=== PATIENT | female | born 1960 | race Caucasian/White ===

== ENCOUNTER 2017-06-10 08:30 | Emergency (ER) | payer BC ==
[~2017-06-10] VITALS: Ht 165.1 cm; Wt 63.5 kg
[~2017-06-10 08:30] MED LIST: DESOGEN PO; LEXAPRO20 MG PO
--- OUTSIDE RECORDS SUMMARY | 2017-06-10 08:51 | XMS | Clinical Summary ---
Demographics + + + | Address | [address] | | | [place] [address] | + + + | Home Phone | | + + + | Preferred Language | Unknown | + + + | Marital Status | | + + + | Church Affiliation | Unknown | + + + | Race | Unknown | + + + | Ethnic Group | Unknown | + + + Author + + + | Author | [facility] | | | and [place] | + + + | Organization | [facility] | | | and [place] | + + + | Address | Unknown | + + + | Phone | Unavailable | + + + Support + + +---------+ + | Name | Relationship | Address | Phone | + + +---------+ + | Moshe Hartley | ECON | Unknown | | + + +---------+ + Care Team Providers + +------+ + | Care Bodily Injury Adjuster Name | Role | Phone | + +------+ + | No, Physician | PP | Unavailable | + +------+ + Allergies + + + + + + | Active Allergy | Reactions | Severity | Noted | Comments | | | | | Date | | + + + + + + | Penicillins | | | 11/23/19 | | | | | | 16 | | + + + + + + Current Medications No known medications Active Problems No known active problems Social History + +-------+ +--------+------+ | Tobacco Use | Types | Packs/Day | Years | Date | | | | | Used | | + +-------+ +--------+------+ | Never Smoker | | | | | + +-------+ +--------+------+ + + + | Sex Assigned at | Date Recorded | | | | + + + | Not on file | | + + + Last Filed Vital Signs + + + + | Vital Sign | Reading | Time Taken | + + + + | Blood Pressure | - | - | + + + + | Pulse | - | - | + + + + | Temperature | 37.1 C (98.7 F) | 11/23/2015 1023 PDT | + + + + | Respiratory Rate | - | - | + + + + | Oxygen Saturation | - | - | + + + + | Inhaled Oxygen | - | - | | Concentration | | | + + + + | Weight | 61.7 kg (136 lb) | 11/23/20153 PDT | + + + + | Height | 163.8 cm (5' 4.5") | 11/23/2015 1023 PDT | + + + + | Body Mass Index | 22.98 | 11/23/2015 1023 PDT | + + + + Plan of Treatment + + + + + | Health Maintenance | Due Date | Last Done | Comments | + + + + + | Hepatitis C | | | | | Screening | 2 | | | + + + + + | Vaccine: | | | | | Dtap/Tdap/Td (1 - | 1 | | | | Tdap) | | | | + + + + + | CERVICAL CANCER | | | | | SCREENING (PAP EVERY | 3 | | | | 3 YEARS 21-64 ) | | | | + + + + + | BREAST CANCER | | | | | SCREENING (MAMM Q2 | 2 | | | | YEARS 50-74) | | | | + + + + + | COLON CANCER | | | | | SCREENING | 2 | | | | (COLONOSCOPY EVERY | | | | | 10 YEARS 50-75) | | | | + + + + + | Vaccine: Influenza | | | | | (Season Ended) | 8 | | | + + + + + Results Not on filefrom Last 3 Months Insurance +-------+--------+ +------+-------+---------+ | Payer | Benefi | Subscriber | Type | Phone | Address | | | t Plan | ID | | | | | | / | | | | | | | Group | | | | | +-------+--------+ +------+-------+---------+ | BCBS | BCBS | xxxxxxxxxxx | PPO | | | | | PPO | x | | | | | | OTHER | | | | | +-------+--------+ +------+-------+---------+ + +--------+ +--------+ + + | Guarantor Name | Accoun | Relation to | Date | Phone | Billing Address | | | t Type | Patient | of | | | | | | | | | | + +--------+ +--------+ + + | KELY HARTLEY | Person | Self [birth year] Home: | [address] | | | al/Fam | | 1960 | [phone] | [place] [address] | | | dario | | | [phone] | | + +--------+ +--------+ + +
--- OUTSIDE RECORDS SUMMARY | 2017-06-10 08:51 | XMS | Clinical Summary ---
Demographics + + + | Address | [address] | | | [place] [address] | + + + | Home Phone | | + + + | Preferred Language | Unknown | + + + | Marital Status | | + + + | Adventist Affiliation | Unknown | + + + | Race | Unknown | + + + | Ethnic Group | Unknown | + + + Author + + + | Author | [facility] | | | and [place] | + + + | Organization | [facility] | | | and [place] [...] Team Providers + +------+ + | Care Field Artillery Crewmember Name | Role | Phone | + [...] | 1960 | [phone] | [place] [address] | | | dario | | | [phone] | | + +--------+ +--------+ + +
== END 2017-06-10 09:32 | disposition home or self-care (01) ==
LOC: ED 08:30
PROC: 0HQ1XZZ Repair Face Skin, External Approach (ICD-10-PCS; principal; 2017-06-10)
DX: S01.81XA Laceration without foreign body of other part of head, initial encounter (principal); W01.198A Fall on same level from slipping, tripping and stumbling with subsequent striking against other object, initial encounter; Z88.0 Allergy status to penicillin; Z79.899 Other long term (current) drug therapy
CPT/HCPCS: 12051; 90471; 90715; 99282

== ENCOUNTER 2019-12-12 00:04 | Emergency (ER) | payer BC ==
[~2019-12-12] VITALS: Ht 165.1 cm; Wt 56.7 kg
[2019-12-12] MEDS ORDERED: ONDANSETRON ODT8 MG PO (02:31)
[2019-12-12] MEDS ORDERED: DICLOFENAC SODI75 MG PO (02:31)
[2019-12-12] MEDS ORDERED: PERCOCET 5-3251 EACH PO (02:31)
== END 2019-12-12 02:41 | disposition home or self-care (01) ==
LOC: ED 00:04
DX: M54.5 Low back pain (principal); Z88.0 Allergy status to penicillin
CPT/HCPCS: 72131; 96374; 96375; 99284-25; J1170; J1885; J2405

== ENCOUNTER 2020-08-03 03:08 | Emergency (ER) | payer BC ==
[~2020-08-03] VITALS: Ht 165.1 cm; Wt 61.2 kg
[~2020-08-03 03:08] MED LIST changes: +DICLOFENAC SODI75 MG PO; +ONDANSETRON ODT8 MG PO; +PERCOCET 5-3251 EACH PO
[2020-08-03] MEDS ORDERED: CEFDINIR300 MG PO (04:59)
[2020-08-03] MEDS ORDERED: METHYLPREDNISOLO4 M1 PO (04:59)
== END 2020-08-03 05:09 | disposition home or self-care (01) ==
LOC: ED 03:08
DX: M54.12 Radiculopathy, cervical region (principal); M19.90 Unspecified osteoarthritis, unspecified site; Z88.0 Allergy status to penicillin
CPT/HCPCS: 96374; 96375; 99283-25; J1100; J1885; J2060; J2405

== ENCOUNTER 2025-01-16 06:35 | Day surgery (SDC) | payer BC ==
[~2025-01-16] VITALS: Ht 165.1 cm; Wt 61.3 kg
[~2025-01-16 06:35] MED LIST changes: +CEFDINIR300 MG PO; +METHYLPREDNISOLO4 M1 PO; +MIDAZOLAM HCL 5 MG/5 ML VIAL IV PRN; +fentaNYL citrate 100 MCG/2 ML VIAL IV PRN
[2025-01-16] MEDS ORDERED: fentaNYL citrate 100 MCG/2 ML VIAL ONE (06:49)
[2025-01-16] MEDS ORDERED: MIDAZOLAM HCL 5 MG/5 ML VIAL ONE (06:49)
[2025-01-16 06:57] VITALS: BP 96/63
[2025-01-16] MEDS ORDERED: LACTATED RINGER'S 1,000 ML IV SCH (07:00)
[2025-01-16] MEDS ORDERED: CEFAZOLIN SODIUM 2 GM in SODIUM CHLORIDE 0.9% 100 ML IV SCH (07:00)
[2025-01-16] MEDS ORDERED: LIDOCAINE HCL 1% 5 ML SDV INJ ONE (07:00)
[2025-01-16] MEDS ORDERED: IBLOOD GLUCOSE TEST STRIP 1 EA TEST VI PRN (07:00)
[2025-01-16] MEDS ORDERED: CALCIUM CITRAT PO (07:03)
[2025-01-16] MEDS ORDERED: MACULAR HEALTH1 EACH PO (07:04)
[2025-01-16] MEDS ORDERED: VITAMIN D375 MCG PO (07:04)
[2025-01-16] MEDS ORDERED: BIOTIN5 MG PO (07:04)
[2025-01-16] MEDS ORDERED: VITAMIN C250 MG PO (07:05)
[2025-01-16] MEDS ORDERED: ALLEGRA ALLERGY60 MG PO (07:05)
--- NOTE | 2025-01-16 08:48 | NUR ---
01/16/25 0848 Arianna,Nataliia 0820 PT ARRIVED TO PACU ON RA, PT EYES OPEN AND TALKING TO RN. RN ORIENTS PT TO PACU AND PT DENIES CONCERNS. PT ENCOURAGED TO PASS GAS. PT EASILY FALLS ASLEEP WITH SMALL AMOUNT OF SNORING NOTED.
[2025-01-16 09:38] VITALS: BP 88/53
--- NOTE | 2025-01-16 09:41 | NUR ---
RETURNED FROM PACU TOO SLEEPY. WENT HOME. CALL LIGHT GIVEN WATER GIVEN.
[2025-01-16 10:00] VITALS: BP 89/50
--- NOTE | 2025-01-16 10:00 | NUR ---
AROUSES EASILY. SITTING UP DRINKING WATER STATES SHE FEELS MORE AWAKE.
--- NOTE | 2025-01-16 10:50 | NUR ---
1015 AWAKE READING CHART PAPERS. DC INSTRUCTIONS EXPLAINED AND GIVEN. STATES NO QUESTIONS FOR DC PAPERS HAS QUESTIONS TO ASK DR. SHAFFER SO CALLED TO COME FOR PT. GETTING DRESSED AND DCD PER WC AT 1028.
--- NOTE | 2025-01-21 14:08 | OR ---
[facility] [address] [place], [place] [address] Signed DATE OF OPERATION: 01/16/2025 SURGEON: Jeovanny Webb MD PREOPERATIVE DIAGNOSIS: Family history of colon cancer (mother). POSTOPERATIVE DIAGNOSIS: Questionable mucosal lesion, left colon (excised, normal terminal ilium). PROCEDURES: Total colonoscopy to cecum with intubation of ileum and biopsy of ileum, prolonged complicated difficult. ANESTHESIA: Intravenous sedation; fentanyl 200 mcg and Versed 8 mg, preoperative antibiotic Ancef 2 g. 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 She has family history of colon cancer in her mother who of the disease. The patient last underwent colonoscopy by me in 2016. She has had colonoscopy elsewhere since that time by Dr. Gee in the [place], [place]. She is currently symptom-free having no bleeding, diarrhea, or constipation. She has undergone hip replacement for which prophylactic antibiotics are anticipated preoperatively. She understands the risk of bleeding, infection, and perforation related to colonoscopy and wished to proceed. FINDINGS: The prep was quite excellent. Complete colonoscopy was undertaken of the cecum with full intubation of the cecum and partial intubation of the ileum as well. The ileum appeared normal. Biopsies obtained to ascertain that. The colon throughout was very well prepped and in the left colon was a mucosal lesion, which was probably not adenomatous, but was excised anyway. The remaining colon was entirely normal. The procedure was prolonged, complicated, and difficult taking a full 45 minutes (normal 20 minutes). It was accomplished safely, however, and she tolerated it well. DESCRIPTION OF PROCEDURE: The patient was brought to the endoscopy suite and placed in lateral decubitus position, Electronically Signed By: JEOVANNY WEBB MD 01/21/25 1408 PATIENT NAME: TIMMY HARTLEY OPERATIVE REPORT DATE OF : 62 REPORT #: [id number] PHYSICIAN: JEOVANNY WEBB MD PCP: HAKEEM HUERTA MD REPORT IS CONFIDENTIAL AND NOT TO BE RELEASED WITHOUT AUTHORIZATION [facility] [address] [place], [place] [address] Signed given intravenous sedation to a point of slurred speech and nystagmus with full cardiopulmonary monitoring. Preoperative antibiotic Ancef was given. Digital rectal examination was normal. An Olympus video colonoscope was passed in the rectum and manipulated throughout the colon, advancing to the hepatic flexure without too much trouble. In this area, there appeared to be redundancy or other factors that precluded easy passage to the cecum. Various maneuvers were undertaken including stiffening of the scope, abdominal wall stabilization, placement into supine rather than lateral position and various other maneuvers. With the diligence and patience and implementation of various maneuvers, ultimately the scope was passed to the cecum with full intubation of the cecum and good visualization of the appendiceal orifice. The ileocecal valve was rather slit-like and very small, though it was able to be intubated. The villi appeared normal. Biopsies were taken of the ileum to ascertain this. Full inspection of the cecum showed the appendiceal orifice and other structures to be normal. The scope was then withdrawn and examination throughout showed no sign of abnormality until the left colon at approximately 60 cm where a small mucosal lesion was noted. Narrow band imaging was undertaken, which did not confirm or refute the possibility of adenomatous change and on that basis, multiple biopsies were taken to ablate the lesion. Specimens were passed for pathology. Further withdrawal of scope showed no other abnormality, specifically no diverticula. Retroflexed view of the rectum was normal. Scope was removed. The patient was taken to the recovery room in good condition. CONCLUDING DIAGNOSIS: Essentially normal; mucosal abnormality, left colon, probably not adenomatous and ileum is normal. PLAN: Standard recommendation will be to repeat colonoscopy in 5 years, sooner if symptoms should develop. This will be reiterated to the patient. The patient will return to the ongoing care of Dr. Hakeem Huerta specifically. Also Arnaud Saxena [place]. Jeovanny Webb MD JM/MODL /[id number] Electronically Signed By: JEOVANNY WEBB MD 01/21/25 1408 PATIENT NAME: TIMMY HARTLEYSTACEYCOLUMBA OPERATIVE REPORT DATE OF : 62 REPORT #: [id number] PHYSICIAN: JEOVANNY WEBB MD PCP: HAKEEM HUERTA MD REPORT IS CONFIDENTIAL AND NOT TO BE RELEASED WITHOUT AUTHORIZATION [facility] [address] [place] [address] Signed Copies: ~ Electronically Signed By: JEOVANNY WEBB MD 01/21/25 1408 PATIENT NAME: TIMMY HARTLEY OPERATIVE REPORT DATE OF : 62 REPORT #: [id number] PHYSICIAN: JEOVANNY WEBB MD PCP: HAKEEM HUERTA MD REPORT IS CONFIDENTIAL AND NOT TO BE RELEASED WITHOUT AUTHORIZATION
== END 2025-01-16 10:28 | disposition home or self-care (01) ==
LOC: DS 06:35
PROVIDERS: ATTEND Surgery
PROC: 0DBG8ZX Excision of Left Large Intestine, Via Natural or Artificial Opening Endoscopic, Diagnostic (ICD-10-PCS; 2025-01-16)
PROC: 0DBB8ZX Excision of Ileum, Via Natural or Artificial Opening Endoscopic, Diagnostic (ICD-10-PCS; principal; 2025-01-16 07:30)
DX: Z12.11 Encounter for screening for malignant neoplasm of colon (principal); K63.5 Polyp of colon; L72.0 Epidermal cyst; Z88.0 Allergy status to penicillin; Z80.0 Family history of malignant neoplasm of digestive organs
CPT/HCPCS: 99153; G0500; J0688; J2250; J3010; J7121